=== PATIENT | female | born 1965 | race Caucasian/White ===

== ENCOUNTER 2016-05-24 13:10 | Emergency (ER) | payer OTHER, MEDICARE ==
[~2016-05-24] VITALS: Ht 154.9 cm; Wt 70.6 kg
[~2016-05-24 13:10] MED LIST: ACTOPLUS MET1 TABLE1 PO; AVELOX400 MG PO; PRAVASTATIN SOD40 MG PO; PRISTIQ50 MG PO
[2016-05-24 13:24] VITALS: BP 149/86
[2016-05-24] MEDS ORDERED: OMEPRAZOLE20 MG PO (15:57)
[2016-05-24] MEDS ORDERED: ATORVASTATIN CA40 MG PO (15:57)
[2016-05-24] MEDS ORDERED: PIOGLITAZONE HC30 MG PO (15:58)
[2016-05-24] MEDS ORDERED: LEVOTHYROXINE50 MCG PO (15:58)
[2016-05-24] MEDS ORDERED: METFORMIN (15:58)
[2016-05-24] MEDS ORDERED: NORCO 7.5/321 TABLET PO (16:32)
== END 2016-05-24 17:19 | disposition home or self-care (01) ==
LOC: EXP 13:10 → EME 13:10 → EXP 17:19
PROC: 2W3RX1Z Immobilization of Left Lower Leg using Splint (ICD-10-PCS; principal; 2016-05-24)
DX: S82.852A Displaced trimalleolar fracture of left lower leg, initial encounter for closed fracture (principal); W01.0XXA Fall on same level from slipping, tripping and stumbling without subsequent striking against object, initial encounter; X50.1XXA Overexertion from prolonged static or awkward postures, initial encounter; E11.9 Type 2 diabetes mellitus without complications
CPT/HCPCS: 73610; 99281; 99284